=== PATIENT | male | born 2000 | race Caucasian/White ===

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

== ENCOUNTER 2020-10-06 17:28 | Emergency (ER) | payer MEDICAID ==
[~2020-10-06] VITALS: Ht 175.3 cm; Wt 54.5 kg
--- NOTE | 2020-10-06 17:56 | NUR ---
NOTIFIED ANA JASSO. IN TO SEE PT NOW.
[2020-10-06] MEDS ORDERED: diphenhydrAMINE 50 mg/ml inj IM ONE (18:15)
[2020-10-06] MEDS ORDERED: LORazepam 2 mg/ml vial IM ONE (18:15)
[2020-10-06] MEDS ORDERED: normal saline 1000ML IV soln IVB ONE ×2 (18:30→20:30)
--- NOTE | 2020-10-06 18:30 | NUR ---
Assumed care of patient.
[2020-10-06 19:25] LABS: BASOPHILS # (AUTO) 0.1 X10'3 (0-0.2); BASOPHILS % (AUTO) 0.4 % (0-1); EOSINOPHILS % (AUTO) 0.2 % (0-6); HEMATOCRIT 49.7 % (42.0-52.0); HEMOGLOBIN 17.2 g/dl (14.0-17.9); LYMPHOCYTES # (AUTO) 3.2 X10'3 (1.1-4.8); LYMPHOCYTES % (AUTO) 16.4 % (21-51); MEAN CORPUSCULAR HEMOGLOBIN 31.3 PG (27.0-31.0); MEAN CORPUSCULAR HGB CONC 34.5 g/dL (33.0-36.5); MEAN CORPUSCULAR VOLUME 90.7 FL (78-98); MEAN PLATELET VOLUME 8.2 FL (7.4-10.4); MONOCYTES # (AUTO) 1.4 X10'3 (0-0.9); NEUTROPHILS # (AUTO) 14.7 X10'3 (1.8-7.7); PLATELET COUNT 389 X10'3 (140-440); RED BLOOD COUNT 5.48 X10'6 (4.70-6.10); RED CELL DISTRIBUTION WIDTH 13.2 % (11.5-14.5); WHITE BLOOD COUNT 19.3 X10'3 (4.5-11.0)
[2020-10-06 20:13] LABS: ALANINE AMINOTRANSFERASE 27 U/L (12-78); ALBUMIN 4.9 G/DL (3.4-5.0); ALBUMIN/GLOBULIN RATIO 1.4 (1.1-1.5); ALKALINE PHOSPHATASE 80 IU/L (20-180); ANION GAP 21 (8-16); ASPARTATE AMINO TRANSFERASE 16 U/L (10-37); BILIRUBIN,TOTAL 0.3 MG/DL (0.1-1.0); BLOOD UREA NITROGEN 9 MG/DL (7-18); BUN/CREATININE RATIO 7.5 (5.4-32.0); CALCIUM 9.3 MG/DL (8.5-10.1); CHLORIDE 103 MMOL/L (99-107); GLUCOSE 191 MG/DL (70-104); POTASSIUM 3.1 MMOL/L (3.5-5.1); SODIUM 143 MMOL/L (135-145); TOTAL PROTEIN 8.5 G/DL (6.4-8.2); eGFR 78 ML/MIN
[2020-10-06] MEDS ORDERED: potassium Cl 20 mEq SR tablet PO ONE ×2 (20:25→20:30)
[2020-10-06 22:13] LABS: BASOPHILS % (AUTO) 0.2 % (0-1); EOSINOPHILS % (AUTO) 0 % (0-6); HEMATOCRIT 40.7 % (42.0-52.0); HEMOGLOBIN 14.3 g/dl (14.0-17.9); LYMPHOCYTES # (AUTO) 0.7 X10'3 (1.1-4.8); LYMPHOCYTES % (AUTO) 4.9 % (21-51); MEAN CORPUSCULAR HEMOGLOBIN 31.4 PG (27.0-31.0); MEAN CORPUSCULAR HGB CONC 35.2 g/dL (33.0-36.5); MEAN CORPUSCULAR VOLUME 89.1 FL (78-98); MEAN PLATELET VOLUME 7.3 FL (7.4-10.4); MONOCYTES % (AUTO) 6.7 % (2-12); NEUTROPHILS % (AUTO) 88.2 % (42-75); PLATELET COUNT 248 X10'3 (140-440); RED BLOOD COUNT 4.57 X10'6 (4.70-6.10); RED CELL DISTRIBUTION WIDTH 12.9 % (11.5-14.5); WHITE BLOOD COUNT 14.7 X10'3 (4.5-11.0)
[2020-10-06 22:40] VITALS: BP 102/60
== END 2020-10-06 22:54 | disposition home or self-care (01) ==
LOC: ER 17:29
DX: G24.09 Other drug induced dystonia (principal); T50.995A Adverse effect of other drugs, medicaments and biological substances, initial encounter; E87.6 Hypokalemia; M62.830 Muscle spasm of back; F41.9 Anxiety disorder, unspecified; F32.9 Major depressive disorder, single episode, unspecified; Z79.899 Other long term (current) drug therapy; Y92.89 Other specified places as the place of occurrence of the external cause
CPT/HCPCS: 36415; 80053; 83605; 85025; 93005; 96360; 96361; 96372; 99285; J1200; J2060; J7030